=== PATIENT | female | born 1965 | race Caucasian/White ===

== ENCOUNTER → 2021-01-20 | Outpatient (CLI) | payer BC, OTHER ==
[~2021-01-20] MED LIST: NORCO 5-325 TA1 EACH PO
== END ==
LOC: EXRD 15:09
DX: R13.10 Dysphagia, unspecified (principal); E03.4 Atrophy of thyroid (acquired); E04.1 Nontoxic single thyroid nodule
CPT/HCPCS: 76536

== ENCOUNTER → 2021-04-25 | Outpatient (CLI) | payer BC, OTHER | LOC: KOH-I 10:19 | DX: R10.11 Right upper quadrant pain (principal); R14.0 Abdominal distension (gaseous); R11.0 Nausea; K76.0 Fatty (change of) liver, not elsewhere classified; R93.421 Abnormal radiologic findings on diagnostic imaging of right kidney | CPT/HCPCS: 76705 ==

== ENCOUNTER → 2021-05-28 | Outpatient (CLI) | payer BC, OTHER | LOC: NM 07:29 | DX: R10.9 Unspecified abdominal pain (principal); R11.0 Nausea | CPT/HCPCS: 78227; A9537 ==

== ENCOUNTER → 2021-06-24 | Outpatient (CLI) | payer OTHER | LOC: RAD 11:14 | DX: M54.2 Cervicalgia (principal); M47.812 Spondylosis without myelopathy or radiculopathy, cervical region | CPT/HCPCS: 72040 ==

== ENCOUNTER → 2021-07-04 | Outpatient (CLI) | payer OTHER | LOC: KOH-I 09:34 | DX: M50.30 Other cervical disc degeneration, unspecified cervical region (principal); M48.02 Spinal stenosis, cervical region; M25.78 Osteophyte, vertebrae | CPT/HCPCS: 72141 ==

== ENCOUNTER → 2021-07-12 | Outpatient (CLI) | payer OTHER ==
[2021-07-12 11:51] LABS: HEMOGLOBIN 14.9 gm/dl (12.3-15.3); RED BLOOD COUNT 5.03 M/UL (4.00-5.10); WHITE BLOOD COUNT 7.7 K/UL (4.5-11.0)
[2021-07-12 12:09] LABS: BUN/CREATININE RATIO 16 (0-10)
[2021-07-13 08:10] LABS: CREATININE, URINE 145.9 mg/dL (Not Estab.)
== END ==
LOC: LAB 11:28
PROVIDERS: Nurse Practitioner Family
DX: E11.9 Type 2 diabetes mellitus without complications (principal); M25.50 Pain in unspecified joint; R53.83 Other fatigue; F32.A Depression, unspecified; M51.36 Other intervertebral disc degeneration, lumbar region; E78.5 Hyperlipidemia, unspecified; E53.8 Deficiency of other specified B group vitamins
CPT/HCPCS: 36415; 80053; 80061; 82043; 82570; 82607; 83036; 84439; 84443; 85025

== ENCOUNTER → 2021-07-31 | Outpatient (CLI) | payer OTHER | LOC: KOH-I 13:30 | DX: M54.12 Radiculopathy, cervical region (principal); M50.30 Other cervical disc degeneration, unspecified cervical region | CPT/HCPCS: 72125 ==

== ENCOUNTER → 2021-08-18 | Outpatient (CLI) | payer OTHER | LOC: EXRD 13:43 | DX: M79.641 Pain in right hand (principal); M79.642 Pain in left hand; M25.511 Pain in right shoulder; M19.012 Primary osteoarthritis, left shoulder; M19.042 Primary osteoarthritis, left hand; M19.041 Primary osteoarthritis, right hand | CPT/HCPCS: 73030; 73130 ==

== ENCOUNTER 2021-08-28 17:25 | Emergency (ER) | payer OTHER ==
[~2021-08-28] VITALS: Ht 162.6 cm; Wt 81.6 kg
== END 2021-08-28 21:50 | disposition home or self-care (01) ==
LOC: ER1 17:25
DX: U07.1 COVID-19 (principal); E11.9 Type 2 diabetes mellitus without complications; Z23 Encounter for immunization
CPT/HCPCS: 0240U; 71046; 99283; M0243

== ENCOUNTER → 2021-10-14 | Outpatient (CLI) | payer OTHER ==
[2021-10-14 09:45] LABS: HEMOGLOBIN 14.1 gm/dl (12.3-15.3); RED BLOOD COUNT 4.79 M/UL (4.00-5.10); WHITE BLOOD COUNT 7.6 K/UL (4.5-11.0)
[2021-10-14 10:16] LABS: BUN/CREATININE RATIO 17 (0-10)
== END ==
LOC: LAB 08:15
PROVIDERS: Nurse Practitioner Family
DX: Z01.818 Encounter for other preprocedural examination (principal); R00.2 Palpitations; E11.9 Type 2 diabetes mellitus without complications; I10 Essential (primary) hypertension
CPT/HCPCS: 36415; 71046; 80053; 84439; 84443; 85025

== ENCOUNTER → 2021-10-21 | Outpatient (CLI) | payer OTHER | LOC: HEART 5 14:52 | DX: R00.2 Palpitations (principal) ==

== ENCOUNTER → 2021-11-11 | Outpatient (CLI) | payer OTHER ==
[~2021-11-11] MED LIST changes: +ACIPHEX20 MG PO; +AZELASTINE137 MCG/0.; +CELEBREX 200MG200 MG PO; +CYMBALTA60 MG PO; +DICLOFENAC 1% TOP; +DICLOFENAC SODI75 MG PO; +ESTRADIOL1 EAC1 TD; +LEVOTHYROXINE175 MCG PO; +LEXAPRO20 MG PO; +LIPITOR40 MG PO; +LOSARTAN POTAS100 MG PO; +NEURONTIN300 MG PO; +NORVASC10 MG PO; +SINGULAIR10 MG PO; +TRULICITY1.5 MG/0.5 SQ; +VITAMIN C500 M4 PO; +ZETIA10 MG PO; +ZINC50 M3 PO
[2021-11-11 14:43] LABS: RED BLOOD COUNT 4.93 M/UL (4.00-5.10)
[2021-11-11 15:05] LABS: BUN/CREATININE RATIO 17 (0-10)
== END ==
LOC: EDSTATUS 11:00 → OPSV2 11:00
PROVIDERS: Orthopaedic Surgery
DX: Z01.818 Encounter for other preprocedural examination (principal); G95.89 Other specified diseases of spinal cord
CPT/HCPCS: 36415; 71046; 80048; 81001; 83036; 85027; 87081; 87086; 93005

== ENCOUNTER → 2021-11-23 | Outpatient (CLI) | payer OTHER ==
[~2021-11-23] VITALS: Ht 160 cm; Wt 81.6 kg
[~2021-11-23] MED LIST changes: +HYDROCODON-ACE1 EAC4 PO; +HYGROTON TAB 2525 MG PO; +KLOR-CON M2020 MEQ PO
[2021-11-23 15:46] LABS: BUN/CREATININE RATIO 14 (0-10)
== END ==
LOC: LAB 15:05
PROVIDERS: Orthopaedic Surgery
DX: Z01.812 Encounter for preprocedural laboratory examination (principal)
CPT/HCPCS: 80048; 85610; 85730; 86850; 86900; 86901

== ENCOUNTER 2021-11-24 04:58 | Inpatient (IN) | payer OTHER ==
[~2021-11-24] VITALS: Ht 160 cm; Wt 81.6 kg
[~2021-11-24 04:58] MED LIST changes: -CELEBREX 200MG200 MG PO; -CYMBALTA60 MG PO; -HYDROCODON-ACE1 EAC4 PO; -HYGROTON TAB 2525 MG PO; -KLOR-CON M2020 MEQ PO; -LEVOTHYROXINE175 MCG PO
[2021-11-24 12:49] LABS: HEMOGLOBIN 11.9 gm/dl (12.3-15.3); RED BLOOD COUNT 4.14 M/UL (4.00-5.10); WHITE BLOOD COUNT 8.5 K/UL (4.5-11.0)
[2021-11-24 13:04] LABS: BUN/CREATININE RATIO 15 (0-10)
[2021-11-24] MEDS ORDERED: CELEBREX 200MG200 MG PO (15:08)
[2021-11-24] MEDS ORDERED: CYMBALTA60 MG PO (15:09)
[2021-11-24] MEDS ORDERED: LEVOTHYROXINE175 MCG PO (15:09)
[2021-11-24] MEDS ORDERED: HYDROCODON-ACE1 EAC4 PO (16:50)
[2021-11-24] MEDS ORDERED: HYGROTON TAB 2525 MG PO (16:53)
[2021-11-24] MEDS ORDERED: KLOR-CON M2020 MEQ PO (16:56)
[2021-11-25 05:40] LABS: HEMOGLOBIN 11.4 gm/dl (12.3-15.3); RED BLOOD COUNT 3.96 M/UL (4.00-5.10)
[2021-11-25 05:46] LABS: WHITE BLOOD COUNT 12.6 K/UL (4.5-11.0)
[2021-11-25 06:03] LABS: BUN/CREATININE RATIO 13 (0-10)
[2021-11-26 05:17] LABS: HEMOGLOBIN 11.3 gm/dl (12.3-15.3); RED BLOOD COUNT 3.89 M/UL (4.00-5.10); WHITE BLOOD COUNT 11.9 K/UL (4.5-11.0)
[2021-11-26 05:41] LABS: BUN/CREATININE RATIO 17 (0-10)
[2021-11-27 06:37] LABS: HEMOGLOBIN 10.2 gm/dl (12.3-15.3); WHITE BLOOD COUNT 10.4 K/UL (4.5-11.0)
[2021-11-27 06:41] LABS: RED BLOOD COUNT 3.48 M/UL (4.00-5.10)
[2021-11-27 07:00] LABS: BUN/CREATININE RATIO 16 (0-10)
== END 2021-11-27 12:29 | disposition home or self-care (01) | DRG 460 ==
LOC: OR 04:58 → CCU 15:33
PROVIDERS: Internal Medicine; ADMIT Orthopaedic Surgery
PROC: 0RG4071 Fusion of Cervicothoracic Vertebral Joint with Autologous Tissue Substitute, Posterior Approach, Posterior Column, Open Approach (ICD-10-PCS; 2021-11-24)
PROC: 0RB30ZZ Excision of Cervical Vertebral Disc, Open Approach (ICD-10-PCS; 2021-11-24)
PROC: 0RB50ZZ Excision of Cervicothoracic Vertebral Disc, Open Approach (ICD-10-PCS; 2021-11-24)
PROC: 0RB90ZZ Excision of Thoracic Vertebral Disc, Open Approach (ICD-10-PCS; 2021-11-24)
PROC: 01N10ZZ Release Cervical Nerve, Open Approach (ICD-10-PCS; 2021-11-24)
PROC: 01N80ZZ Release Thoracic Nerve, Open Approach (ICD-10-PCS; 2021-11-24)
PROC: 0RG2071 Fusion of 2 or more Cervical Vertebral Joints with Autologous Tissue Substitute, Posterior Approach, Posterior Column, Open Approach (ICD-10-PCS; principal; 2021-11-24 07:30)
PROC: 0RG6071 Fusion of Thoracic Vertebral Joint with Autologous Tissue Substitute, Posterior Approach, Posterior Column, Open Approach (ICD-10-PCS; 2021-11-24 07:30)
DX: M47.12 Other spondylosis with myelopathy, cervical region (principal); M54.12 Radiculopathy, cervical region; I10 Essential (primary) hypertension; Z20.822 Contact with and (suspected) exposure to COVID-19; K21.9 Gastro-esophageal reflux disease without esophagitis; E78.5 Hyperlipidemia, unspecified; E03.9 Hypothyroidism, unspecified; M54.50 Low back pain, unspecified; J30.2 Other seasonal allergic rhinitis; F41.9 Anxiety disorder, unspecified; E87.6 Hypokalemia; E11.9 Type 2 diabetes mellitus without complications; G89.29 Other chronic pain; Z82.49 Family history of ischemic heart disease and other diseases of the circulatory system; Z82.0 Family history of epilepsy and other diseases of the nervous system; Z90.710 Acquired absence of both cervix and uterus; Z98.890 Other specified postprocedural states; Z79.4 Long term (current) use of insulin; Z79.899 Other long term (current) drug therapy
CPT/HCPCS: 36415; 72040; 72050; 76000; 80048; 82962; 84132; 85025; 85027; C1713; C1762; J0690; J1040; J1100; J1170; J1885; J2001; J2250; J2370; J2405; J2704; J3010; J3370; J7030; J7040; J7050; J7120

== ENCOUNTER → 2022-01-15 | Outpatient (CLI) | payer OTHER ==
[~2022-01-15] MED LIST changes: +CELEBREX 200MG200 MG PO; +CYMBALTA60 MG PO; +HYDROCODON-ACE1 EAC4 PO; +HYGROTON TAB 2525 MG PO; +KLOR-CON M2020 MEQ PO; +LEVOTHYROXINE175 MCG PO
== END ==
LOC: EMI 08:16 → KOH-I 01-20 15:15
DX: M51.36 Other intervertebral disc degeneration, lumbar region (principal); M51.37 Other intervertebral disc degeneration, lumbosacral region
CPT/HCPCS: 72148

== ENCOUNTER → 2022-02-10 | Outpatient (CLI) | payer OTHER | LOC: CT 09:30 | DX: N28.9 Disorder of kidney and ureter, unspecified (principal); N28.1 Cyst of kidney, acquired | CPT/HCPCS: 36415; 74160; 82565; 84520; Q9967 ==